=== PATIENT | male | born 1980 | race Caucasian/White ===

== ENCOUNTER 2023-08-09 10:34 | Emergency (ER) | payer OTHER, SELFPAY ==
[2023-08-09] VITALS (28 sets, daily range): BP systolic 156–222; BP diastolic 108–163; PULSE 62–95; RESP 12–20; TEMP 36.3–36.7; O2SAT 92–952; BMI 30.6
--- NOTE | 2023-08-09 11:04 | EKG12_ITS ---
Test Reason : Blood Pressure : / mmHG Vent. Rate : 088 BPM Atrial Rate : 088 BPM P-R Int : 146 ms QRS Dur : 096 ms QT Int : 408 ms P-R-T Axes : 061 -03 057 degrees QTc Int : 493 ms Normal sinus rhythm Possible Left atrial enlargement Nonspecific T wave abnormality Prolonged QT Abnormal ECG Confirmed by MARZENA GRAYSON, CHEN ([id number]), editorial clerk DENNIS SALGADO ([id number]) on 08/16/2023 9:51:06 AM Referred By: Confirmed By:SERVANDO IVAN MD
--- NOTE | 2023-08-09 11:04 | EX.ED.DYSGE1 ---
HPI History of Present Illness Chief Complaint: Hypertension Informant: patient Onset/Context/Timing Onset: Today Context: Gradual Onset Timing: Continuous Worsened by: Nothing Relieved by: Nothing Narrative Narrative: Patient presents with high blood pressure that was noticed today. Patient states he was scheduled to have an umbilical herniorrhaphy today. Patient states his blood pressure was too high and his surgery was canceled. Patient denies any symptoms. Patient states he does not go to the doctor and does not know if he has a history of hypertension. Patient does not take any antihypertensive medications. Patient denies any headaches. Patient denies any chest pain or shortness of breath. Patient denies any visual changes. PFSH PFSH Medical History Alcohol use Marijuana use Smoker Home Medications lisinopril 10 mg tablet 10 mg PO DAILY #10 tabs 08/09/23 [Rx Last Taken Unknown] Allergy/AdvReac Type Severity Reaction Status Date / Time No Known Allergies Allergy Verified 08/09/23 10:35 Family History (Updated 06/22/23 @ 14:29 by Soni Miranda LPN) Father Colon cancer Mother Lung cancer Surgical History History of tonsillectomy History of wisdom tooth extraction S/P inguinal hernia repair Social History (Updated 08/09/23 @ 12:[address] Jerome Dye DO) Smoking Status: Current every day smoker tobacco type: e-cigarettes alcohol intake: current alcohol intake frequency: 3 or more drinks per day Alcohol type: hard liquor substance use type: marijuana ROS ROS ED Constitutional Constitutional ED: Denies chills or fever(s) Eyes Eyes: Denies blurry vision or change in vision ENT ENT ED: Denies rhinorrhea or sore throat Cardiovascular Cardiovascular: Denies chest pain or palpitations Respiratory/Chest Respiratory/Chest: Denies cough or dyspnea Gastrointestinal Gastrointestinal: Denies nausea or vomiting Genitourinary Genitourinary ED: Denies dysuria or hematuria Musculoskeletal Musculoskeletal: Denies back pain or neck pain Integumentary Denies abscess or rash Neurologic Neurologic: Denies headache(s) or weakness Allergic/Immunologic Allergic/Immunologic ED: Denies mouth swelling or urticaria EXAM Physical Exam Const Vital Signs: 08/09/23 10:35 08/09/23 11:16 08/09/23 11:23 Temperature 97.4 F L Temperature Source Temporal Pulse Rate 95 83 Respiratory Rate 18 14 Respiratory Effort Normal Non-Labored Blood Pressure 222/163 H 209/139 H Blood Pressure Mean 182 162 Pulse Ox 97 96 Oxygen Delivery Method Room Air Room Air 08/09/23 11:53 08/09/23 12:33 08/09/23 12:32 Temperature Temperature Source Pulse Rate 65 62 71 Respiratory Rate 16 18 20 H Respiratory Effort Blood Pressure 191/134 H 188/135 H Blood Pressure Mean 153 152 Pulse Ox 94 95 94 Oxygen Delivery Method Room Air Room Air 08/09/23 12:40 08/09/23 12:45 08/09/23 12:50 Temperature Temperature Source Pulse Rate 62 68 62 Respiratory Rate 19 H 17 17 Respiratory Effort Blood Pressure 180/131 H Blood Pressure Mean 146 Pulse Ox 93 93 93 Oxygen Delivery Method 08/09/23 13:00 08/09/23 13:10 08/09/23 13:15 Temperature Temperature Source Pulse Rate 69 65 64 Respiratory Rate 18 18 16 Respiratory Effort Blood Pressure 167/121 H 174/127 H Blood Pressure Mean 135 139 Pulse Ox 92 94 94 Oxygen Delivery Method 08/09/23 13:20 08/09/23 13:30 08/09/23 13:40 Temperature Temperature Source Pulse Rate 76 72 66 Respiratory Rate 18 14 16 Respiratory Effort Blood Pressure 192/136 H Blood Pressure Mean 154 Pulse Ox 94 97 93 Oxygen Delivery Method 08/09/23 13:45 08/09/23 13:50 08/09/23 14:00 Temperature Temperature Source Pulse Rate 72 68 70 Respiratory Rate 16 19 H 15 Respiratory Effort Blood Pressure 177/130 H 176/127 H Blood Pressure Mean 145 143 Pulse Ox 95 93 95 Oxygen Delivery Method 08/09/23 14:10 08/09/23 14:15 08/09/23 14:20 Temperature Temperature Source Pulse Rate 62 71 Respiratory Rate 17 16 Respiratory Effort Blood Pressure 172/123 H Blood Pressure Mean 137 Pulse Ox 93 93 Oxygen Delivery Method 08/09/23 14:30 08/09/23 14:30 08/09/23 14:40 Temperature Temperature Source Pulse Rate 73 73 66 Respiratory Rate 17 17 18 Respiratory Effort Blood Pressure 172/126 H Blood Pressure Mean 140 Pulse Ox 95 95 95 Oxygen Delivery Method 08/09/23 14:45 08/09/23 14:50 08/09/23 15:00 Temperature Temperature Source Pulse Rate 71 67 72 Respiratory Rate 12 17 15 Respiratory Effort Blood Pressure 165/112 H 169/125 H Blood Pressure Mean 128 137 Pulse Ox 96 96 93 Oxygen Delivery Method 08/09/23 15:10 Temperature Temperature Source Pulse Rate 89 Respiratory Rate 18 Respiratory Effort Blood Pressure Blood Pressure Mean Pulse Ox 93 Oxygen Delivery Method Positive well nourished and well developed General Appearance ED: well developed and NAD HEENT Reports moist mucous membranes Neck supple and no JVD Resp normal respiratory effort and clear to auscultation bilaterally Cardio regular rate, regular rhythm and no murmurs GI normal to inspection, nondistended, normoactive bowel sounds and non-tender Palpation: soft Extremity normal to inspection General Extremety ED: Negative for edema or tenderness General Extremity: Negative for edema Neuro oriented x3, CN's II-XII intact bilaterally and no sensory deficits noted Sensorium / Orientation: alert Motor Exam: strength 5/5 throughout Psych mental status grossly normal Skin no rashes or lesions noted MDM MDM MDM Narrative Medical decision making narrative: Differential diagnosis includes cardiac dysrhythmia, cardiac ischemia, acute kidney injury, pneumonia, pneumothorax, and urinary tract infection. CBC will be obtained to assess for leukocytosis and anemia. Comprehensive metabolic profile will be obtained to assess for hepatic function, renal function, and electrolyte abnormality. Urinalysis will be obtained to assess for urinary tract infection or hematuria. High-sensitivity troponin will be obtained to assess for cardiac ischemia. Chest x-ray will be obtained to assess for pneumonia and widened mediastinum. EKG will be obtained to assess for cardiac dysrhythmia and cardiac ischemia. Lab Data Attestation: I reviewed the patient's lab results. Lab results narrative: CBC was reviewed and was within normal limits. Comprehensive metabolic profile was reviewed and was within normal limits. Urinalysis was reviewed. There is no evidence of urinary tract infection or hematuria. High-sensitivity troponin was reviewed and was normal at 8. Labs: Laboratory Results - last 24 hr 08/09/23 08/09/23 11:17 12:10 WBC 8.0 RBC 5.07 Hgb 16.0 Hct 48.1 MCV 94.9 H MCH 31.6 MCHC 33.3 RDW Std Deviation 43.5 RDW Coeff of Anmol 12.5 Plt Count 413 MPV 8.7 Immature Gran % (Auto) 0.500 Neut % (Auto) 62.1 Lymph % (Auto) 23.2 [place] % (Auto) 11.3 H Eos % (Auto) 2.0 Baso % (Auto) 0.9 Absolute Neuts (auto) 5.0 Absolute Lymphs (auto) 1.85 Nucleated RBC % 0 Sodium 137 Potassium 4.0 Chloride 105 Carbon Dioxide 27.0 Anion Gap 5 BUN 12 Creatinine 1.04 Estim Creat Clear Calc 110.14 Est GFR (MDRD) Af Amer 100 Est GFR (MDRD) Non-Af 83 BUN/Creatinine Ratio 11.5 Glucose 104 Calcium 8.7 Total Bilirubin 1.00 AST 33 ALT 62 H Alkaline Phosphatase 88 Troponin I High Sens 8 Total Protein 7.5 Albumin 3.8 Globulin 3.7 Albumin/Globulin Ratio 1.0 Urine Color Yellow Urine Clarity Clear Urine pH 6.5 Ur Specific [place] 1.015 Urine Protein 15 H Urine Glucose (UA) Normal Urine Ketones Negative Urine Occult Blood Negative Urine Nitrite Negative Urine Bilirubin Negative Urine Urobilinogen Normal Ur Leukocyte Esterase Negative Urine RBC 0 SEEN Urine WBC 0 SEEN Ur Squamous Epith Cells 0-5 SEEN Urine Bacteria 0 SEEN Urine Mucus 0 SEEN Radiography Diagnostic Testing: Clinical Impression(s) from Imaging Studies Chest X-Ray 08/09/23 11:25 IMPRESSION: Right-sided aortic arch. The lungs are clear. Electronically Signed: Jasbir Collins MD at 12:03 EST , PA and lateral chest x-ray was obtained. There are 2 views. On my independent interpretation, lung vasquez are clear. There is normal cardiac silhouette. There is a right-sided aortic arch noted. Bony thorax is normal. There is no acute process noted. Radiologist also interpreted the x-ray and agrees. EKG Initial EKG: Attestation: I personally reviewed and interpreted this EKG as follows: Interpretation: Sinus Rhythm (88) and Non-Specific ST Changes Comments: EKG was obtained. On my independent interpretation, it showed a normal sinus rhythm with a rate of 88. CT interval, QRS interval, and QTc intervals were all normal. Hardy was normal. There are nonspecific ST-T wave changes. Prior EKG tracings: available for review Prior: Unchanged (08/03/2023) Treatment and Re-Evaluation :: Smoking cessation was discussed. Patient was given a dose of labetalol here. Patient's blood pressure improved slightly to 177/130. Patient was given a dose of clonidine. Patient's blood pressure was still 172/126. Patient was given another dose of clonidine. Patient's blood pressure improved to 156/108. Patient is feeling better on reevaluation. Patient wants to go home. Patient was given a prescription for lisinopril. Patient was instructed to follow-up with his primary care physician in 3 to 5 days. Patient was instructed to continue to monitor his blood pressures daily. Patient was instructed to keep a log of his blood pressures to take to his primary care physician for follow-up appointment. Patient and spouse understood and were agreeable with plan. All questions were answered. Discharge Plan Triage Chief Complaint: Hypertension ED Provider: Jerome Dye Dx/Rx/DC Orders Clinical Impression: Hypertension Instructions: ED Hypertension New Begin Treatment Prescriptions: New lisinopril 10 mg tablet 10 mg PO DAILY Qty: 10 0RF Primary Care Provider: Ally Bearden Referrals: Ally Bearden, SIGNALLING AND COMMUNICATIONS ENGINEER-C [Primary Care Provider] - 3-5 Days Disposition Disposition: Home, Self Care
[2023-08-09] MEDS: Labetalol (Prefilled) 20 MG/4 ML IV (11:20)
--- NOTE | 2023-08-09 11:25 | RAD_ITS ---
STUDY: X-RAY CHEST REASON FOR EXAM: Male, 43 years old. Hypertension TECHNIQUE: PA and lateral views of the chest. COMPARISON: None. FINDINGS: EKG electrodes are seen. The lungs are clear and expanded. There is no demonstrated pleural abnormality. Normal size heart. Normal mediastinum and vipul. Normal visualized pulmonary arteries. There is a right-sided aortic arch. This a normal variant. Normal visualized thoracic spine. Normal visualized ribs, clavicles, and shoulders. There is no demonstrated abnormality of the visualized soft tissue structures of the upper abdomen. RAD/Chest PA and Lateral IMPRESSION: Right-sided aortic arch. The lungs are clear. Electronically Signed: Jasbir Collins MD at 12:03 [facility] ,
[2023-08-09 11:30] LABS: Absolute Lymphocyte Count 1.85 X10^3/uL (0.83-4.51); Basophil# 0.07 X10^3/uL; Basophil% 0.9 % (0-1); Eosinophil# 0.16 X10^3/uL; Hematocrit 48.1 % (40-54); Lymphocyte # 1.85 X10^3/ul (0.83-4.51); Lymphocyte % 23.2 % (19-41); Mean Corp Hgb Conc 33.3 g/dL (32-36); Mean Corpuscular Hgb 31.6 pg (27.0-32.0); Mean Corpuscular Volume 94.9 fL (80-94); Mean Platelet Vol. 8.7 fl (6.2-12.0); Monocyte% 11.3 % (0-10); NRBC Flagged by Analyzer 0 % (0-5); Neutrophil # 4.96 X10^3/uL (2.7-7.7); Neutrophil % 62.1 % (47-70); Platelet Count 413 K/mm3 (150-450); RBC Distribution Width CV 12.5 % (11.6-14.6); RBC Distribution Width SD 43.5 fl (35.1-43.9); Red Blood Count 5.07 M/mm3 (4.6-6.2)
[2023-08-09 11:49] LABS: AST(SGOT) 33 U/L (15-37); Alanine Aminotransfer ALT/SGPT 62 U/L (16-61); Albumin, Serum 3.8 g/dL (3.2-5.0); Alkaline Phosphatase 88 U/L (45-117); Anion Gap 5 (5-15); BUN 12 mg/dL (7-18); BUN/Creat Ratio 11.5 RATIO (10-20); Calcium,Total 8.7 mg/dL (8.5-10.1); Chloride 105 mmol/L (98-107); Creatinine, Serum 1.04 mg/dL (0.70-1.30); EST Glomerular Filtration Rate 83 mL/min (>60); Est Glom Filt Rate - Afr Amer 100 mL/min (>60); Estimated Creatinine Clearance 110.14 ml/min; Globulin 3.7 g/dL (2.2-4.2); Glucose 104 mg/dL (74-106); Protein, Total 7.5 g/dL (6.4-8.2); Sodium Level 137 mmol/L (136-145); Troponin-I HS 8 pg/mL (3.0-78.0)
[2023-08-09 12:18] LABS: Bacteria 0 SEEN /hpf (None Seen); Mucous, Urine 0 SEEN /hpf (<or=2+); Red Blood Cells-Urine 0 SEEN /hpf (0-5); White Blood Cells 0 SEEN /hpf (0-5)
[2023-08-09 12:20] LABS: Color, Urine Yellow (Yellow); Glucose, Dipstick Normal (Normal); Ketone-Dipstick Negative (Negative); Leukocyte Esterase-Dipstick Negative /ul (Negative); Nitrite-Dipstick Negative (Negative); Occult Blood-Urine Negative /ul (Negative); Protein-Dipstick 15 mg/dl (Negative); Specific Gravity, Urine 1.015 (1.002-1.030); Urine Bilirubin Dipstick Negative (Negative); Urine Clarity Clear (Clear); Urine Urobilinogen Normal (Normal); Urine pH 6.5 (5.0 - 8.0)
[2023-08-09 12:27] LABS: Squamous Epithelial Cells - UA 0-5 SEEN /hpf (0-5)
[2023-08-09] MEDS: cloNIDine HCl 0.2 MG Tablet 0.200000000000000011 MG PO (13:30)
[2023-08-09] MEDS: cloNIDine HCl 0.1 MG Tablet 0.100000000000000006 MG PO (15:11)
--- OUTSIDE RECORDS SUMMARY | 2023-08-09 18:10 | XMS RPT_ITS | CCD ---
Author Name Unknown Address [address] [place] [address] Organization [facility] Care Team Providers Care Employee Services Manager Name Role Phone Don Lara MD Primary Care Provider DON LARA Primary Care Unavailable SAVAGE HER Referring Unavailable DON LARA Primary Care Unavailable Medications Current Medications Medication Drug Class(es) Dates Sig (Normalized) Sig (Original) amoxicillin 875 mg oral tablet (2 sources) Penicillin-class Antibacterial Start: 11-11-2021 End: 11-18-2021 take 1 tablet by mouth twice daily amoxicillin (AMOXIL) 875 mg tablet Take 1 tablet by mouth twice daily for 7 days. 14 tablet 0 11/11/2021 11/18/2021 Active Completed/Discontinued Medications Medication Drug Class(es) Dates Sig (Normalized) Sig (Original) ibuprofen 800 mg oral tablet (4 sources) Nonsteroidal Anti-inflammatory Drug Start: 07-16-2009 IBUPROFEN 800 MG TAB Indications: Rotator cuff syndrome Take one(1) tablet every eight(8) hours as needed for pain. 60 0 07/16/2009 Active Problems Problem Classification Problem Date Documented Da te Episodic/Chronic Fever of unknown origin (1 source) Fever; Translations: [Fever, unspecified] Episodic Inflammation; infection of eye (except that caused by tuberculosis or sexually transmitteddisease) (1 source) Bacterial conjunctivitis; Translations: [Unspecified conjunctivitis] Episodic Other ear and sense organ disorders (1 source) Impacted cerumen in right ear; Translations: [Impacted cerumen, right ear] Episodic Otitis media and related conditions (1 source) Acute bilateral otitis media ; Translations: [Otitis media, unspecified, bilateral] Episodic Substance-related disorders (4 sources) Tobacco user; Translations: [Nicotine dependence, unspecified, uncomplicated] 07-05-2007 Chronic Results Test Name Value Interpretation Reference Range Facil ity Vital Signs Date Time Vital Sign Value Performing Clinician Charlee bradshaw 10-20-2022 09:10-0400 Body temperature 97.9 [degF] Krislyn Aberegg PA Work Phone: [facility] 10-20-2022 09:10-0400 Body weight 101.7 kg Krislyn Aberegg PA Work Phone: [facility] 10-20-2022 09:10-0400 Diastolic blood pressure 84 mm[Hg] Krislyn Aberegg PA Work Phone: [facility] 10-20-2022 09:10-0400 Heart rate 76 /min Krislyn Aberegg PA Work Phone: [facility] 10-20-2022 09:10-0400 Respiratory rate 16 /min Krislyn Aberegg PA Work Phone: [facility] 10-20-2022 09:10-0400 SaO2% (BldA) [Mass fraction] 97 % Krislyn Aberegg PA Work Phone: [facility] 10-20-2022 09:10-0400 Systolic blood pressure 142 mm[Hg] Krislyn Aberegg PA Work Phone: [facility] 11-11-2021 11:41-0400 Body temperature 100.8 [degF] Henrietta Ojeda CONTRACTS SPECIALIST.ARCHITECTURAL DESIGNER Work Phone: [facility] 11-11-2021 11:41-0400 Body weight 103.87 kg Henrietta Ojeda CONTRACTS SPECIALIST.ARCHITECTURAL DESIGNER Work Phone: [facility] 11-11-2021 11:41-0400 Diastolic blood pressure 76 mm[Hg] Henrietta Ojeda CONTRACTS SPECIALIST.ARCHITECTURAL DESIGNER Work Phone: [facility] 11-11-2021 11:41-0400 Heart rate 116 /min Henrietta Ojeda CONTRACTS SPECIALIST.ARCHITECTURAL DESIGNER Work Phone: [facility] 11-11-2021 11:41-0400 Respiratory rate 16 /min Henrietta Ojeda CONTRACTS SPECIALIST.ARCHITECTURAL DESIGNER Work Phone: [facility] 11-11-2021 11:41-0400 SaO2% (BldA) [Mass fraction] 96 % Henrietta Ojeda CONTRACTS SPECIALIST.ARCHITECTURAL DESIGNER Work Phone: [facility] 11-11-2021 11:41-0400 Systolic blood pressure 132 mm[Hg] Henrietta Ojeda CONTRACTS SPECIALIST.ARCHITECTURAL DESIGNER Work Phone: [facility] Encounters Encounter Date Encounter Type Care Provider Facility Start: 06-17-2023 End: 06-17-2023 ambulatory DON LARA Facility:[facility] Start: 10-20-2022 Telephone encounter Naeem perez Work Phone: [facility] Care Plan of Treatment Date Care Activity Detail Author Start: 02-12-2023 Influenza vaccination INFLUENZA (Season Ended) [facility] jose Start: 06-14-2022 DEPRESSION ASSESSMENT DEPRESSION ASSESSMENT [facility] Start: 02-12-2022 Influenza vaccination INFLUENZA (Season Ended) [facility] jose Start: 11-11-2021 End: 11-25-2021 Influenza virus A and B RNA and SARS-CoV-2 (COVID-19) N gene panel - Respiratory specimen by SAMIA with probe detection COVID WITH FLUA+B, ROUTINE Microbiology Routine Fever, unspecified fever cause Expected: 11/11/2021, Expires: 11/25/2021 [facility] Work Phone: Immunizations Immunization Date Immunization Notes Care Provider Duyen chappell 07-05-2007 tetanus and diphther ia toxoids, adsorbed, preservative free, for adult use (2 Lf of tetanus toxoid and 2 Lf of diphtheria toxoid) Henrietta Ojeda CONTRACTS SPECIALIST.ARCHITECTURAL DESIGNER Work Phone: [facility] Work Phone: Payers Date Payer Category Payer Unknown MMO MMO [employer] [id number] 2018-Present [phone] [address] [place] [address] PPO [id number] 2018 Unknown MMO MMO [employer] PPO [id number] 2018-Present [phone] [address] [place] [address] PPO [id number] 2018 Unknown [id number] Social History Date Type Detail Facility Start: 09-12-[facility] Work Phone: History of tobacco use Cigarette Smoker [facility] Work Phone: Start: 11-11-2021 End: 10-20-2022 Alcohol intake Current drinker of alcohol (finding) [facility] Start: 07-05-2007 History SDOH Alcohol Comment rare (few times a year) [facility] Start: 1980 Sex Assigned At Not on file [facility] Start: 11-01-2021 End: 11-11-2021 Exposure to SARS-CoV-2 (event) Not sure [facility] Work Phone: Start: 09-12-2011 Cigarettes smoked current (pack per day) - Reported 1 [facility] Start: 09-12-2011 Tobacco use and exposure Smokeless tobacco non-user [facility] Progress note 06-17-2023 Note Date & Type Note Facility 06-17-2023 Note HNO ID: [id number] Author: MANNY SAUCEDA RT(R) Service: ? 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 FALL SCREENING: Has the patient had 2 falls in the last year or 1 fall with injury or currently using an Ambulatory Assistive Device (Walker, Cane, Wheelchair, Crutches, etc.)? No PATIENT GENDER DATA: Male PATIENT RELEVANT IMPLANT DATA REVIEWED: Yes ALLERGIES: Reviewed and unchanged CONTRAST ALLERGY: NO. EXAM: CT -CONTRAST INDUCED NEPHROPATHY RISK FACTORS: Not applicable CREATININE: No results found for: CREAT , EGFROTH , EGFRAA P.O.C.T. RESULTS: POC done: Yes, See Lab Tab June 17, 2023 TREATMENT: N/A PERIPHERAL IV DATA: Ambulatory: A peripheral IV was started in the Right antecubital site with a Angio cath: 22 gauge. RADIOLOGY DEPARTMENT: CT; Exam(s) Completed: Abdomen SIGNATURE: RT Luz(R) PATIENT NAME: Kendal Ann DATE: June 17, 2023 TIME: 1:32 PM [facility] [place] Note 10-20-2022 Telephone Encounter - Eliza Carrillo LPN - 10/20/2022 12:53 PM EDTTelephone Encounter - Jaleesa Mcgrath RN - 10/20/2022 12:29 PM EDT Note Date & Type Note Facility 10-20-2022 Miscellaneous Notes Formattin g of this note might be different from the original. 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 Patient states that this medication is on back order. Patient asking if something else can be ordered? Please review and advise, Jaleesa Mcgrath RN Please call patient and let him know that we sent in a prescription for a different antibiotic ointment for him. Thank you documented in this encounter [facility] Progress note 10-20-2022 Note Date & Type Note Facility 10-20-2022 Note HNO ID: [id number] Author: MAU Rhdoes Service: ? Author Type: Physician Food Mixer Type: Progress Notes Filed: 10/20/2022 9:20 AM Note Text: This note was created using NoteWriter. Subjective Kendal Ann is a 42 year old male. HPI 42-year-old male presents for right eye redness, irritation. It started about 2 days ago. He has been using old Cipro drops that he had from a prior diagnosis. He states that it has improved with those drops. He states the eye is very watery and red. It is also itchy and irritated. He has had some crusting around the eye. He states his girlfriend's child recently had pinkeye. Patient has not had any fevers, cough, URI symptoms. No vision changes. No headaches. Does not wear contacts or glasses PAST MEDICAL HISTORY Diagnosis Date Tobacco use disorder age 15 PAST SURGICAL HISTORY Procedure Laterality Date RPR INGUN HERNIA SLIDING ANY AGE age 7-8 [place] TONSILLECTOMY PRIMARY/SECONDARY ALLERGIES Patient has no known allergies. MEDICATIONS trimethoprim-polymyxin (POLYTRIM) 10,000 unit- 1 mg/mL ophthalmic solution Use 1 Drop in the right eye every 4 hours for 7 days. meloxicam 15 mg ORAL tablet Take 1 tablet by mouth once daily. Take with food. (Patient not taking: Reported on 11/11/2021 ) IBUPROFEN 800 MG TAB Take one(1) tablet every eight(8) hours as needed for pain. (Patient not taking: Reported on 11/11/2021) FAMILY HISTORY Problem Relation Age of Onset Allergies Mother Headache Brother Stroke Maternal Grandfather Ischemic Heart Disease Maternal Grandfather first AL at age 40's Heart Maternal Grandfather surgery (several CABG) Hypertension Maternal Grandfather Hypertension Maternal Grandmother Lipids Maternal Grandfather Diabetes Maternal Uncle Alcohol/Drug Maternal Grandmother Kidney failure Ischemic Heart Disease Maternal Uncle first AL early 40's None Father (varicose veins severe) Colon Cancer Other none Prostate Cancer Other none Social History Tobacco Use Smoking status: Every Day Packs/day: 1.00 Years: 12.00 Pack years: 12.00 Types: Cigarettes Smokeless tobacco: Never Substance Use Topics Alcohol use: Yes Comment: rare (few times a year) Drug use: No Review of Systems Constitutional: Negative for chills and fever. HENT: Negative for congestion and sore throat. Eyes: Positive for discharge, redness and itching. Negative for photophobia, pain and visual disturbance. Respiratory: Negative for cough and shortness of breath. Gastrointestinal: Negative for diarrhea and vomiting. Objective BP 142/84 Pulse 76 Temp 36.6 ?C (97.9 ?F) (Tympanic) Resp 16 Wt 101.7 kg (224 lb 3.2 oz) SpO2 97% Physical Exam Vitals and nursing note reviewed. Constitutional: General: He is not in acute distress. Appearance: Normal appearance. He is not toxic-appearing. HENT: Nose: Nose normal. Mouth/Throat: Mouth: Mucous membranes are moist. Eyes: General: Vision grossly intact. Extraocular Movements: Extraocular movements intact. Conjunctiva/sclera: Right eye: Right conjunctiva is injected. Comments: Right conjunctiva injected with excessive tearing. PERRLA. EOMI. Vision grossly intact. No periorbital edema or erythema. No pain with eye movement Cardiovascular: Rate and Rhythm: Normal rate and regular rhythm. Pulmonary: Effort: Pulmonary effort is normal. Breath sounds: Normal breath sounds. Skin: General: Skin is warm and dry. Neurological: Mental Status: He is alert. Assessment and Plan ASSESSMENT/PLAN: 1. Bacterial conjunctivitis - ICD9: 372.39, 041.9, ICD10: H10.9 - see medication orders - course and contagiousness issues discussed, including hand washing. - Instructed to call if high fever, development of periorbital redness or swelling, eye pain, visual changes, concerns or if symptoms persist. Diagnosis and treatment plan were discussed and questions were answered to the patient's satisfaction. Pt acknowledged understanding of concepts and follow up plan. Specific signs and symptoms that would indicate the need for higher level of care were discussed in detail warranting prompt ER evaluation. MAU Rhodes [facility] History of Present illness Narrative 10-20-2022 MAU Rhodes - 10/20/2022 9:19 AM EDT Note Date & Type Note Facility 10-20-2022 History of Presen t illness Narrative This note was created using [employer]. Subjective Kendal Ann is a 42 year old male. HPI 42-year-old male presents for right eye redness, irritation. It started about 2 days ago. He has been using old Cipro drops that he had from a prior diagnosis. He states that it has improved with those drops. He states the eye is very watery and red. It is also itchy and irritated. He has had some crusting around the eye. He states his girlfriend's child recently had pinkeye. Patient has not had any fevers, cough, URI symptoms. No vision changes. No headaches. Does not wear contacts or glasses PAST MEDICAL HISTORY Diagnosis Date Tobacco use disorder age 15 PAST SURGICAL HISTORY Procedure Laterality Date RPR INGUN HERNIA SLIDING ANY AGE age 7-8 [place] TONSILLECTOMY PRIMARY/SECONDARY <AGE 12 age 2 ALLERGIES Patient has no known allergies. MEDICATIONS trimethoprim-polymyxin (POLYTRIM) 10,000 unit- 1 mg/mL ophthalmic solution Use 1 Drop in the right eye every 4 hours for 7 days. meloxicam 15 mg ORAL tablet Take 1 tablet by mouth once daily. Take with food. (Patient not taking: Reported on 11/11/2021 ) IBUPROFEN 800 MG TAB Take one(1) tablet every eight(8) hours as needed for pain. (Patient not taking: Reported on 11/11/2021) FAMILY HISTORY Problem Relation Age of Onset Allergies Mother Headache Brother Stroke Maternal Grandfather Ischemic Heart Disease Maternal Grandfather first AL at age 40's Heart Maternal Grandfather surgery (several CABG) Hypertension Maternal Grandfather Hypertension Maternal Grandmother Lipids Maternal Grandfather Diabetes Maternal Uncle Alcohol/Drug Maternal Grandmother Kidney failure Ischemic Heart Disease Maternal Uncle first AL early 40's None Father (varicose veins severe) Colon Cancer Other none Prostate Cancer Other none Social History Tobacco Use Smoking status: Every Day Packs/day: 1.00 Years: 12.00 Pack years: 12.00 Types: Cigarettes Smokeless tobacco: Never Substance Use Topics Alcohol use: Yes Comment: rare (few times a year) Drug use: No Review of Systems Constitutional: Negative for chills and fever. HENT: Negative for congestion and sore throat. Eyes: Positive for discharge, redness and itching. Negative for photophobia, pain and visual disturbance. Respiratory: Negative for cough and shortness of breath. Gastrointestinal: Negative for diarrhea and vomiting. Objective BP 142/84 Pulse 76 Temp 36.6 C (97.9 F) (Tympanic) Resp 16 Wt 101.7 kg (224 lb 3.2 oz) SpO2 97% Physical Exam Vitals and nursing note reviewed. Constitutional: General: He is not in acute distress. Appearance: Normal appearance. He is not toxic-appearing. HENT: Nose: Nose normal. Mouth/Throat: Mouth: Mucous membranes are moist. Eyes: General: Vision grossly intact. Extraocular Movements: Extraocular movements intact. Conjunctiva/sclera: Right eye: Right conjunctiva is injected. Comments: Right conjunctiva injected with excessive tearing. PERRLA. EOMI. Vision grossly intact. No periorbital edema or erythema. No pain with eye movement Cardiovascular: Rate and Rhythm: Normal rate and regular rhythm. Pulmonary: Effort: Pulmonary effort is normal. Breath sounds: Normal breath sounds. Skin: General: Skin is warm and dry. Neurological: Mental Status: He is alert. Assessment and Plan ASSESSMENT/PLAN: 1. Bacterial conjunctivitis - ICD9: 372.39, 041.9, ICD10: H10.9 - see medication orders - course and contagiousness issues discussed, including hand washing. - Instructed to call if high fever, development of periorbital redness or swelling, eye pain, visual changes, concerns or if symptoms persist. Diagnosis and treatment plan were discussed and questions were answered to the patient's satisfaction. Pt acknowledged understanding of concepts and follow up plan. Specific signs and symptoms that would indicate the need for higher level of care were discussed in detail warranting prompt ER evaluation. MAU Rhodes documented in this encounter [facility] Note 11-12-2021 Telephone Encounter - Amparo Maher LPN - 11/12/2021 9:20 AM EDTTelephone Encounter - Judy Haile - 11/12/2021 8:30 AM EDTTelephone Encounter - Judy Haile - 11/12/2021 8:30 AM EDT Note Date & Type Note Facility 11-12-2021 Miscellaneous Notes Pt was notified of results & instructions, pt states understanding. Amparo Maher LPN Left message for patient to return call. Judy Haile ----- Message from Henrietta Ojeda APRN.ARCHITECTURAL DESIGNER sent at 11/12/2021 7:34 AM EDT ----- Please notify of positive COVID test. CDC recommendations Quarantine for 5 days from onset of symptoms, then 5 days of mask wearing around others. Supportive measures and can use OTC medicines for specific symptoms and ailments. Follow up with PCP documented in this encounter [facility] Instructions 11-11-2021 Patient Instructions Note Date & Type Note Facility 11-11-2021 Instructions Henrietta Ojeda APRN.ARCHITECTURAL DESIGNER - 11/11/2021 12:08 PM EDT OTITIS MEDIA GENERAL INFORMATION: Otitis media is an infection of the middle ear. The middle ear sits behind the eardrum. This infection may be caused by a virus or bacteria and often follows a cold. Children often have repeat ear infections. Otitis media is not contagious. INSTRUCTIONS: 1. An antibiotic has been prescribed. It should be taken exactly as prescribed. Do not stop the medicine even if the symptoms go away. 2. [id number] pain medication may be taken or other pain medication as prescribed by the doctor. 3. Nothing should be placed in the ear unless instructed by your doctor. 4. The patient may return to school/daycare or work when the temperature is normal (98.6 F or 37 C). 5. The patient should not swim while the ear is infected. CONTACT YOUR DOCTOR IF YOU OR YOUR CHILD: 1. Does not feel better within 36 hours. 2. Develops a temperature over 102E F (39E C). 3. Starts vomiting or has diarrhea. 4. Develops drainage from the affected ear. 5. Has any new problem that may be related to the medicine prescribed. RETURN TO THE ED IF: 1. You or your child has a severe headache or pain around the ear. 2. You or your child notice swelling around the ear. 3. You or your child has a seizure (convulsion), twitching of the facial muscles, or passes out. 4. You or your child is dizzy, has a stiff neck, or cannot walk or talk normally. 5. Your child becomes more irritable or listless (not interested in his or her surroundings, does not get soothed by you holding him or her).FEVER GENERAL INFORMATION: A fever is a temperature taken by mouth or rectum that is higher than 100.4F (38C) in someone who has been resting. Infections commonly cause fever, and children may run higher temperatures than adults. A fever by itself may not be dangerous unless it goes above 105F (40.5C). INSTRUCTIONS: 1. The patient will be better off decreasing his or her activity until he is feeling better. 2. Encourage the patient to drink extra fluids. He/she may not feel like eating much solid food. 3. During this illness, you may take the patient's temperature in the morning, at bedtime, every 4 hours during the day, or more often if the patient looks ill. 4. You may use medications to bring down the patient's fever. Ibuprofen or acetaminophen are good choices. Follow the instructions on the bottle for the appropriate dosage for the patient. Unless your doctor has recommended using aspirin, you should avoid giving aspirin to children. 5. If your child's temperature is above 104F (39.4C), the doctor may suggest you give him/her a sponge bath. Use lukewarm water in a warm room. You should make your child damp, not soaking wet. Do NOT use a fan or ice or cold water, and do not let him/her get chilled. Shivering can make things worse. DO NOT USE RUBBING ALCOHOL! 6. The patient may return to school/daycare or work when the temperature is normal (98.6F or 37C). CONTACT YOUR DOCTOR IF THE PATIENT: 1. Continues to run a fever despite antibiotics for 48 hours. 2. Develops new symptoms. 3. Shows a marked change in behavior, level of consciousness, or level of activity. RETURN TO THE ED IF: 1. The patient develops a temperature over 105F (40.5C). 2. The patient has a seizure (convulsion), develops abnormal movements of the face, arms or legs, or has difficulty breathing. 3. The patient is dizzy, has a stiff neck, or cannot walk or talk normally. 4. The patient becomes more irritable or listless (not interested in his or her surroundings, does not get soothed by you holding him or her). documented in this encounter [facility] History of Present illness Narrative 11-11-2021 Henrietta Ojeda APRN.CNP - 11/11/2021 12:01 PM EDT Note Date & Type Note Facility 11-11-2021 History of Presen t illness Narrative This note was created using [employer]. Subjective Kendal Ann is a 41 year old male. 41 year old male with negative PMH presents with body aches, fever, and right ear clogged . Acute onset of Body aches and fever this morning. clogged ear onset a couple of weeks States I was camping all weekend and felt fine but, my girlfriend was seen here yesterday and she has a virus . 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 Left work today at 10 am due to illness The history is provided by the patient. No director executive communications was used. Ear Problem There is pain in the right ear. This is a new problem. The current episode started 1 to 4 weeks ago. The problem occurs constantly. The problem has been unchanged. The maximum temperature recorded prior to his arrival was 100.4 - 100.9 F. The fever has been present for less than 1 day. The pain is mild. Associated symptoms include headaches and hearing loss. Pertinent negatives include no abdominal pain, coughing, diarrhea, ear discharge, neck pain, rash, rhinorrhea, sore throat or vomiting. He has tried NSAIDs (200 mg) for the symptoms. The treatment provided no relief. There is no history of a chronic ear infection, hearing loss or a tympanostomy tube. PAST MEDICAL HISTORY Diagnosis Date Tobacco use disorder age 15 PAST SURGICAL HISTORY Procedure Laterality Date RPR INGUN HERNIA SLIDING ANY AGE age 7-8 [place] TONSILLECTOMY PRIMARY/SECONDARY <AGE 12 age 2 ALLERGIES Patient has no known allergies. MEDICATIONS amoxicillin (AMOXIL) 875 mg tablet Take 1 tablet by mouth twice daily for 7 days. meloxicam 15 mg ORAL tablet Take 1 tablet by mouth once daily. Take with food. IBUPROFEN 800 MG TAB Take one(1) tablet every eight(8) hours as needed for pain. FAMILY HISTORY Problem Relation Age of Onset Allergies Mother Headache Brother Stroke Maternal Grandfather Ischemic Heart Disease Maternal Grandfather first AL at age 40's Heart Maternal Grandfather surgery (several CABG) Hypertension Maternal Grandfather Hypertension Maternal Grandmother Lipids Maternal Grandfather Diabetes Maternal Uncle Alcohol/Drug Maternal Grandmother Kidney failure Ischemic Heart Disease Maternal Uncle first AL early 40's None Father (varicose veins severe) Colon Cancer Other none Prostate Cancer Other none Social History Tobacco Use Smoking status: Current Every Day Smoker Packs/day: 1.00 Years: 12.00 Pack years: 12.00 Types: Cigarettes Smokeless tobacco: Never Used Substance Use Topics Alcohol use: Yes Comment: rare (few times a year) Drug use: No Review of Systems Constitutional: Positive for fever. Negative for activity change, appetite change and chills. HENT: Positive for hearing loss. Negative for congestion, ear discharge, ear pain, facial swelling, rhinorrhea, sinus pressure, sinus pain, sneezing, sore throat, trouble swallowing and voice change. Right ear muffled. Denies pain Eyes: Negative for photophobia, pain, discharge, redness and itching. Respiratory: Negative for cough, chest tightness, shortness of breath and wheezing. Cardiovascular: Negative for chest pain and palpitations. Gastrointestinal: Negative for abdominal pain, constipation, diarrhea, nausea and vomiting. Endocrine: Negative for cold intolerance and heat intolerance. Genitourinary: Negative for difficulty urinating, frequency and urgency. Musculoskeletal: Negative for back pain, gait problem and neck pain. Skin: Negative for color change, pallor, rash and wound. Allergic/Immunologic: Positive for environmental allergies. Negative for food allergies and immunocompromised state. Neurological: Positive for headaches. Negative for dizziness, seizures, weakness, light-headedness and numbness. Psychiatric/Behavioral: Negative for agitation, behavioral problems and confusion. Objective BP 132/76 Pulse 116 Temp (!) 38.2 C (100.8 F) Resp 16 Wt 103.9 kg (229 lb) SpO2 96% Physical Exam Vitals and nursing note reviewed. Constitutional: General: He is not in acute distress. Appearance: Normal appearance. He is normal weight. He is not ill-appearing, toxic-appearing or diaphoretic. HENT: Head: Normocephalic. Right Ear: No decreased hearing noted. No middle ear effusion. There is impacted cerumen. Tympanic membrane is erythematous. Tympanic membrane is not bulging. Left Ear: No middle ear effusion. There is no impacted cerumen. Tympanic membrane is erythematous. Tympanic membrane is not bulging. Ears: Comments: Right ear irrigated. Large amount of formed cerumen removed by nursing staff. After irrigation ear exam shows erythema to canal and TM. No purulent or serous drainage noted. Left ear free of cerumen impaction. Erythema in canal and TM. No effusion noted. Nose: Nose normal. No congestion or rhinorrhea. Mouth/Throat: Mouth: Mucous membranes are moist. Pharynx: No oropharyngeal exudate or posterior oropharyngeal erythema. Eyes: General: No scleral icterus. Right eye: No discharge. Left eye: No discharge. Extraocular Movements: Extraocular movements intact. Conjunctiva/sclera: Conjunctivae normal. Pupils: Pupils are equal, round, and reactive to light. Cardiovascular: Rate and Rhythm: Tachycardia present. Pulses: Normal pulses. Heart sounds: Normal heart sounds. No murmur heard. No gallop. Pulmonary: Effort: Pulmonary effort is normal. Breath sounds: Normal breath sounds. No wheezing. Chest: Chest wall: No tenderness. Abdominal: General: Bowel sounds are normal. There is no distension. Palpations: Abdomen is soft. Tenderness: There is no abdominal tenderness. Hernia: No hernia is present. Musculoskeletal: General: No swelling, tenderness, deformity or signs of injury. Normal range of motion. Cervical back: Normal range of motion. No rigidity or tenderness. Right lower leg: No edema. Left lower leg: No edema. Skin: General: Skin is warm and dry. Capillary Refill: Capillary refill takes less than 2 seconds. Findings: No lesion or rash. Neurological: General: No focal deficit present. Mental Status: He is alert and oriented to person, place, and time. Mental status is at baseline. Psychiatric: Mood and Affect: Mood normal. Behavior: Behavior normal. Thought Content: Thought content normal. Assessment and Plan ASSESSMENT/PLAN: 1. Acute otitis media, bilateral - ICD9: 382.9, ICD10: H66.93 (primary diagnosis) - Will begin treatment with Amoxicillin for 7 days OTC analgesics 2. Impacted cerumen of right ear - ICD9: 380.4, ICD10: H61.21 Irrigated by nursing staff, tolerated procedure well Cerumen impaction removed and TM visible. 3. Fever, unspecified fever cause - ICD9: 780.60, ICD10: R50.9 - COVID WITH FLUA+B, ROUTINE X's two days. Could be related to Otitis Media vs viral illness Pt education given on antipyretics OTC and increase fluid intake. Flu and COVID pending Discussed red flags Patsy Calvin documented in this encounter [facility] Evaluation note Note Date & Type Note Facility documented in this encounter [facility] Evaluation note Note Date & Type Note Facility documented in this encounter [facility] Health Concerns Infection Onset Date Last Indicated Resolved Time COVID-19 Rule-Out 11/11/2021 11/11/2021 Infection Onset Date Last Indicated Resolved Time COVID-19 Rule-Out 11/11/2021 11/11/2021 11/12/2021 3:23 AM EDT COVID-19 Confirmed 11/11/2021 11/11/2021 Summary Purpose Family History No Family History Records Found Advance Directives No Advanced Directives Records Found Additional Source Comments Source Comments (unrecognize d section and content) In the event this informatio n is protected by the Federal Confidentiality of Alcohol and Drug Abuse Patient Records regulations: The Federal rules restrict any use of the information to criminally investigate or prosecute any alcohol or drug abuse patient.[facility] the event this information is protected by the Federal Confidentiality of Alcohol and Drug Abuse Patient Records regulations: The Federal rules restrict any use of the information to criminally investigate or prosecute any alcohol or drug abuse patient.[facility] the event this information is protected by the Federal Confidentiality of Alcohol and Drug Abuse Patient Records regulations: The Federal rules restrict any use of the information to criminally investigate or prosecute any alcohol or drug abuse patient.[facility] the event this information is protected by the Federal Confidentiality of Alcohol and Drug Abuse Patient Records regulations: The Federal rules restrict any use of the information to criminally investigate or prosecute any alcohol or drug abuse patient.[facility] Reason for Visit (unrecogniz ed section and content) Reason Comments Results Reason Comments Eye Problem Red and irritated ri ght eye x 2 days Reason Comments Medication Problem Care Teams (unrecognized sec tion and content) 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 This clinical summary was aggregated from multiple sources. Caution should be exercised in using it in the provision of clinical care. This summary normalizes information from multiple sources, and as a consequence, information in this document may materially change the coding, format and clinical context of patient data. In addition, data may be omitted in some cases. CLINICAL DECISIONS SHOULD BE BASED ON THE PRIMARY CLINICAL RECORDS. [employer] provides no warranty or guarantee of the accuracy or completeness of information in this document.
== END 2023-08-09 15:46 | disposition home or self-care (01) ==
PROVIDERS: Emergency Provider Emergency Medicine; PCP Nurse Practitioner Family; Visit Provider Emergency Medicine
DX: I10 Essential (primary) hypertension (principal); F17.290 Nicotine dependence, other tobacco product, uncomplicated; Z79.899 Other long term (current) drug therapy
CPT/HCPCS: 71046; 80053; 81001; 84484; 85025; 93005; 96374; 99284; A4216

== ENCOUNTER → 2023-10-22 | Day surgery (SDC) | payer OTHER, SELFPAY ==
--- NOTE | 2023-08-03 12:42 | EKG12_ITS ---
Test Reason : PRE OP Blood Pressure : / mmHG Vent. Rate : 089 BPM Atrial Rate : 089 BPM P-R Int : 142 ms QRS Dur : 096 ms QT Int : 412 ms P-R-T Axes : 064 022 031 degrees QTc Int : 501 ms Normal sinus rhythm Prolonged QT Abnormal ECG Confirmed by CLARENCE GRAYSON, KRISTEN ([id number]), newspaper copy editor DENNIS SALGADO ([id number]) on 08/04/2023 9:00:08 AM Referred By: Don Lara Confirmed By:KRISTEN LIMA MD
[2023-08-03 13:37] LABS: Hemoglobin 15.8 g/dL (13.0-16.5); Mean Corp Hgb Conc 33.6 g/dL (32-36); Mean Corpuscular Hgb 31.6 pg (27.0-32.0); Platelet Count 425 K/mm3 (150-450); RBC Distribution Width CV 12.3 % (11.6-14.6); RBC Distribution Width SD 42.5 fl (35.1-43.9); White Blood Count 8.5 K/mm3 (4.4-11.0)
[2023-08-03 13:53] LABS: Anion Gap 5 (5-15); BUN 14 mg/dL (7-18); BUN/Creat Ratio 12.1 RATIO (10-20); Calcium,Total 9.1 mg/dL (8.5-10.1); Chloride 104 mmol/L (98-107); Creatinine, Serum 1.16 mg/dL (0.70-1.30); EST Glomerular Filtration Rate 73 mL/min (>60); Est Glom Filt Rate - Afr Amer 88 mL/min (>60); Glucose 99 mg/dL (74-106); Potassium 3.8 mmol/L (3.5-5.1); Sodium Level 138 mmol/L (136-145)
[2023-08-03 14:01] LABS: AST(SGOT) 34 U/L (15-37); Alanine Aminotransfer ALT/SGPT 72 U/L (16-61); Albumin, Serum 3.8 g/dL (3.2-5.0); Alkaline Phosphatase 98 U/L (45-117); Bilirubin, Direct 0.17 mg/dL (0.00-0.30); Globulin 3.7 g/dL (2.2-4.2); Protein, Total 7.5 g/dL (6.4-8.2)
[2023-08-03 14:07] LABS: Prothrombin Time (Protime)PT. 13.4 SECONDS (11.7-14.9)
[2023-08-03 14:08] LABS: Partial Thromboplast Time 29.3 Seconds (24.1-36.2)
[2023-08-09 10:02] VITALS: BP 193/53; PULSE 92; RESP 18; TEMP 37.2; O2SAT 100; BMI 31.1
== END | disposition home or self-care (01) ==
LOC: AC 08-09 10:23 → SDC 12:57 → PAT 12:57
PROVIDERS: Anesthesiology; PCP Nurse Practitioner Family; Referring Provider Family Medicine; Visit Provider Surgery
DX: Z01.818 Encounter for other preprocedural examination (principal); Z53.9 Procedure and treatment not carried out, unspecified reason
CPT/HCPCS: 36415; 80048; 80076; 85027; 85610; 85730; 93005; J7120

== ENCOUNTER 2024-05-07 10:47 | Emergency (ER) | payer OTHER, SELFPAY ==
[2024-05-07 10:48] VITALS: BP 140/108; PULSE 140; RESP 18; TEMP 37.7; O2SAT 99; BMI 31.6
[2024-05-07 11:07] VITALS: BP 150/117; PULSE 137; PULSE 142; RESP 20; TEMP 37.7; O2SAT 96
--- NOTE | 2024-05-07 11:20 | EKG12_ITS ---
Test Reason : TACHY Blood Pressure : */* mmHG Vent. Rate : 140 BPM Atrial Rate : 140 BPM P-R Int : 134 ms QRS Dur : 84 ms QT Int : 286 ms P-R-T Axes : 49 6 67 degrees QTcB Int : 436 ms Critical Test Result: High HR Sinus tachycardia Possible Left atrial enlargement Nonspecific ST and T wave abnormality Abnormal ECG Confirmed by Osvaldo Trejo ([id number]), video tape editor ODESSA AMBRIZ ([id number]) on 05/09/2024 10:28:11 AM Referred By: NORBERT/JANET Confirmed By: Osvaldo Trejo
[2024-05-07 11:30] LABS: Absolute Lymphocyte Count 1.52 X10^3/uL (0.83-4.51); Absolute Neutrophil Count 16.6 X10^3/uL (2.0-7.7); Basophil# 0.06 X10^3/uL; Basophil% 0.3 % (0-1); Eosinophil# 0.05 X10^3/uL; Eosinophils% 0.2 % (0-5); Hematocrit 46.7 % (40-54); Lymphocyte # 1.52 X10^3/ul (0.83-4.51); Lymphocyte % 7.6 % (19-41); Mean Corp Hgb Conc 34.3 g/dL (32-36); Mean Corpuscular Hgb 31.9 pg (27.0-32.0); Mean Platelet Vol. 8.4 fl (6.2-12.0); Monocyte# 1.78 X10^3/uL; Monocyte% 8.8 % (0-10); NRBC Flagged by Analyzer 0 % (0-5); Neutrophil # 16.59 X10^3/uL (2.7-7.7); Neutrophil % 82.5 % (47-70); POSITIVE DIFFERENTIAL YES; Platelet Count 440 K/mm3 (150-450); RBC Distribution Width CV 12.5 % (11.6-14.6); RBC Distribution Width SD 42.8 fl (35.1-43.9); Red Blood Count 5.02 M/mm3 (4.6-6.2); White Blood Count 20.1 K/mm3 (4.4-11.0)
[2024-05-07 11:32] LABS: Differential Indicated SCAN CRITERIA MET
--- NOTE | 2024-05-07 11:37 | CT_ITS ---
STUDY: CT FACIAL BONES WITH CONTRAST REASON FOR EXAM: Male, 44 years old. left facial swelling, dental pain RADIATION DOSAGE (If Supplied By Facility): CTDIvol = ( 29.38 ) mGy, DLP = ( 576.84 ) mGycm TECHNIQUE: The patient was scanned in a multi detector CT scanner. Transaxial imaging was performed following the intravenous administration of IV 100mL Isovue-370. Sagittal and coronal images were reconstructed. Individualized dose optimization techniques were used for this CT. COMPARISON: None. FINDINGS: Left most posterior maxillary tooth/molar anchoring roots are on anchored from the overlying bony matrix of the maxillary plate with loss of bone in prominent cystic lucency most likely due to chronic dental caries. This is best visualized on image #53/147 series 601. A periapical/periodontal abscess is present in the anterior aspect of the crown-rump of this to along the abdominal lining measuring 1.18 x 0.95 cm in diameter with overlying edema and cellulitis and reactive lymphadenopathy and hyperemia. Mild to moderate left facial soft tissue swelling is also present. The remaining soft tissues of the face are normal. Normal orbital lehman and orbital contents. Normal nasal bones and anterior nasal spine. There is no demonstrated fracture. Normal visualized paranasal sinuses. Normal mandible. The paranasal sinuses are clear CT/Sinus/Facial Bone WITH Contras IMPRESSION: 1. Left most posterior maxillary tooth/molar anchoring roots are on anchored from the overlying bony matrix of the maxillary plate with loss of bone in prominent cystic lucency most likely due to chronic dental caries. This is best visualized on image #53/147 series 601. 2. A periapical/periodontal abscess is present in the anterior aspect of the crown-rump of this to along the abdominal lining measuring 1.18 x 0.95 cm in diameter with overlying edema and cellulitis and reactive lymphadenopathy and hyperemia. Mild to moderate left facial soft tissue swelling is also present. The remaining soft tissues of the face are normal. Electronically Signed: Leobardo Davis MD at 12:35 EST ,
[2024-05-07 11:40] LABS: Anion Gap 10 (5-15); BUN 10 mg/dL (7-18); BUN/Creat Ratio 9.8 RATIO (10-20); Calcium,Total 8.9 mg/dL (8.5-10.1); Chloride 101 mmol/L (98-107); Creatinine, Serum 1.02 mg/dL (0.70-1.30); EST Glomerular Filtration Rate 84 mL/min (>60); Est Glom Filt Rate - Afr Amer 102 mL/min (>60); Glucose 127 mg/dL (74-106); Potassium 3.6 mmol/L (3.5-5.1); Sodium Level 135 mmol/L (136-145)
[2024-05-07] MEDS: Ketorolac 15 MG/ML Vial IV (11:49)
[2024-05-07] MEDS: 0.9% Normal Saline (1000mL) 1,000 ML 999 ML IV (11:50)
[2024-05-07 12:00] VITALS: BP 180/105; PULSE 120; RESP 18; TEMP 37.7; O2SAT 96
--- NOTE | 2024-05-07 12:11 | EX.ED.DYSGE1 ---
HPI History of Present Illness Chief Complaint: Dental Informant: patient Narrative Narrative: Patient is a 44 year old male with history of hypertension and occasional tobacco use presenting with left upper dental pain as well as left facial swelling. Patient states 2 days ago he started have some mild discomfort of his left upper back molar. Start to get more sore on Wednesday when he woke up and he had some mild swelling of his face. It is progressively worsened since around midnight last night. He initially went to urgent care read a temperature of 100.1. He was tachycardic. His recommend he come to the emergency room. Patient states he last ibuprofen at 5 AM. He denies any difficulty swallowing. Denies any significant headache but is having pain over the left side of his cheek/face. Denies difficulty opening his mouth. Denies any chest pain, shortness of breath or difficulty breathing. Denies any GI or symptoms. No other complaints or concerns reported at this time. Does not currently have a dentist. [facility] Medical History Alcohol use Marijuana use Smoker Home Medications ?Medication ?Instructions ?Recorded ?Last Taken ?Type lisinopril 10 mg tablet 10 mg PO DAILY #10 tabs 08/09/23 Unknown Rx amoxicillin 875 mg-potassium 1 tab PO BID #20 tabs 05/07/24 Unknown Rx clavulanate 125 mg tablet hydrocodone-acetaminophen 5-325mg 1 tab PO Q6H PRN PRN Pain 3 days 05/07/24 Unknown Rx 5mg-325mg #12 TABLETS Allergy/AdvReac Type Severity Reaction Status Date / Time No Known Allergies Allergy Verified 05/07/24 10:48 Family History Father Colon cancer Mother Lung cancer Surgical History History of tonsillectomy History of wisdom tooth extraction S/P inguinal hernia repair Social History Smoking Status: Current every day smoker tobacco type: e-cigarettes alcohol intake: current alcohol intake frequency: 3 or more drinks per day Alcohol type: hard liquor substance use type: marijuana ROS ROS ED Constitutional Constitutional ED: Reports fever(s); Denies chills Eyes Eyes: Denies blurry vision or change in vision ENT ENT ED: Reports other Details: left upper dental pain, left cheek swelling, left periorbital swelling ; Denies ear pain, rhinorrhea or sore throat Cardiovascular Cardiovascular: Denies chest pain Respiratory/Chest Respiratory/Chest: Denies cough Gastrointestinal Gastrointestinal: Denies abdominal pain, nausea or vomiting Musculoskeletal Musculoskeletal: Denies arthralgias, myalgias or neck pain Integumentary Denies rash Neurologic Neurologic: Denies headache(s), paresthesias or weakness EXAM Physical Exam Const Vital Signs: 05/07/24 10:48 05/07/24 11:07 05/07/24 11:07 Temperature 99.8 F H 99.8 F H 99.8 F H Temperature Source Oral Oral Oral Pulse Rate 140 H 137 H 142 H Respiratory Rate 18 20 H 20 H Blood Pressure 140/108 H 150/117 H 150/117 H Blood Pressure Mean 118 128 128 Pulse Ox 99 96 96 Oxygen Delivery Method Room Air Room Air Room Air 05/07/24 12:00 05/07/24 13:00 05/07/24 13:38 Temperature 99.8 F H 99.4 F H 98.2 F Temperature Source Oral Oral Pulse Rate 120 H 99 102 H Respiratory Rate 18 18 22 H Blood Pressure 180/105 H 150/102 H 147/105 H Blood Pressure Mean 130 118 119 Pulse Ox 96 99 96 Oxygen Delivery Method Room Air Positive well nourished and well developed General Appearance ED: well developed and NAD HEENT Reports TM's clear and moist mucous membranes HEENT Narrative: Several missing teeth. TTP of gingiva above tooth space 15/16. Swelling of the left cheek with redness and induration present. No fluctuance appreciated. There is edema noted around the left lower periorbital area. This appears more reactive. Normal nares. Normal phonation. No trismus. Sublingual mucosa is soft. Negative for trauma Tympanic Membrane ED: Yes TM's clear Eyes PERRL and EOMs intact bilaterally Neck no lymphadenopathy and supple Chest Wall inspection of chest normal and palpation of chest normal Resp normal respiratory effort and clear to auscultation bilaterally Cardio regular rhythm and no murmurs Rate: tachycardic GI normal to inspection, nondistended, normoactive bowel sounds and non-tender Extremity normal to inspection Neuro oriented x3 Sensorium / Orientation: alert Motor Exam: Negative for general weakness Psych mental status grossly normal Skin no rashes or lesions noted Skin Narrative: See ENT exam MDM MDM MDM Narrative Medical decision making narrative: Patient is evaluated for tachycardia which was noted at urgent care as well as upper dental pain and left-sided facial swelling and redness. Differential includes dental abscess, facial cellulitis, pots puffy tumor, sepsis and endocarditis. Patient overall is actually quite well-appearing despite his tachycardia and vital signs. He is given IV fluids, Toradol and started on Unasyn as clinically I suspect he does have at a minimum a dental infection is likely migrated to his sinuses. Lab work shows a leukocytosis of 20.1, elevated lactate of 2.1, elevated CRP of 32.6 but BMP is otherwise normal. CT of the face with IV contrast shows findings consistent with chronic dental caries as well as a periapical/periodontal abscess in the anterior aspect of the crown rump with abscess measuring 1.18 x 0.95 cm with overlying edema and cellulitis and reactive lymphadenopathy and hyperemia. There is mild to moderate left facial tissue swelling also present. On repeat evaluation tachycardias improving. Swelling looks mildly improved. Patient states he is actually feeling much better. Discussed that he is meeting criteria for sepsis and offered admission for IV antibiotics and further monitoring. At this time patient would prefer to go home. Given that overall he is quite well-appearing, heart rate was fluid responsive and he does not have any type of airway compromise will discharge home after shared medical decision making made. Counseled patient at length on the risk of progression and to have a low threshold to return to the emergency room. He verbalized agreement understand this plan. Given a prescription for Augmentin as well as a short course of [place] for further pain control. Encouraged to follow-up outpatient with dentist soon as possible as well. He verbalized agreement understand this plan. Discharged home in stable and improved condition. Lab Data Attestation: I reviewed the patient's lab results. Labs: Laboratory Results - last 24 hr 05/07/24 05/07/24 11:18 11:50 WBC 20.1 H RBC 5.02 Hgb 16.0 Hct 46.7 MCV 93.0 MCH 31.9 MCHC 34.3 RDW Std Deviation 42.8 RDW Coeff of Anmol 12.5 Plt Count 440 MPV 8.4 Immature Gran % (Auto) 0.600 Neut % (Auto) 82.5 H Lymph % (Auto) 7.6 L [place] % (Auto) 8.8 Eos % (Auto) 0.2 Baso % (Auto) 0.3 Absolute Neuts (auto) 16.6 H Absolute Lymphs (auto) 1.52 Nucleated RBC % 0 [address] Review May foll Sodium 135 L Potassium 3.6 Chloride 101 Carbon Dioxide 23.0 Anion Gap 10 BUN 10 Creatinine 1.02 Estim Creat Clear Calc 112.90 Est GFR (MDRD) Af Amer 102 Est GFR (MDRD) Non-Af 84 BUN/Creatinine Ratio 9.8 L Glucose 127 H Lactic Acid 2.1 H* Calcium 8.9 C-React Prot Ext Range 32.60 H Radiography Diagnostic Testing: Clinical Impression(s) from Imaging Studies Facial/Sinus 05/07/24 11:37 IMPRESSION: 1. Left most posterior maxillary tooth/molar anchoring roots are on anchored from the overlying bony matrix of the maxillary plate with loss of bone in prominent cystic lucency most likely due to chronic dental caries. This is best visualized on image #53/147 series 601. 2. A periapical/periodontal abscess is present in the anterior aspect of the crown-rump of this to along the abdominal lining measuring 1.18 x 0.95 cm in diameter with overlying edema and cellulitis and reactive lymphadenopathy and hyperemia. Mild to moderate left facial soft tissue swelling is also present. The remaining soft tissues of the face are normal. Electronically Signed: Leobardo Davis MD at 12:35 EST Reading Location ID and State: [address] [place] [address] , Service support , Rhythm Strip Rhythm Strip: Sinus Tach Rate: 140 Ectopy: None EKG Initial EKG: Attestation: I personally reviewed and interpreted this EKG as follows: Interpretation: Sinus Tachycardia Comments: Sinus tachycardia at a rate of 140 bpm Normal axis Normal intervals Normal ST segments Discharge Plan Triage Chief Complaint: Dental ED Provider: Therese Ferris Dx/Rx/DC Orders Clinical Impression: Abscess of apex of dental root complicating chronic inflammation, Cellulitis of face Instructions: ED Dental Abscess Facial Cellulitis Prescriptions: New amoxicillin-pot clavulanate 875-125 mg tablet 1 tab PO BID Qty: 20 0RF hydrocodone-acetaminophen 5-325 mg tablet 1 tab PO Q6H PRN PRN (Reason: Pain) 3 Days Qty: 12 0RF No Action lisinopril 10 mg tablet 10 mg PO DAILY Qty: 10 0RF Primary Care Provider: Ally Bearden Referrals: Ally Bearden, [employer] [Primary Care Provider] - Activity Restrictions/Additional Instructions: Please follow-up closely with a dentist. Please have a low threshold to return to the emergency room should she develop further fever, have worsening pain, generalized malaise, nausea or vomiting. Please push fluids. Avoid any smoking. Print Language: Nepalese Disposition Disposition: Home, Self Care
[2024-05-07] MEDS: Ampicillin/Sulbactam 3 GM in 0.9% Normal Saline (100mL MB+) 100 ML IV (12:24)
[2024-05-07 12:57] LABS: Lactic Acid 2.1 mmol/L (0.4-1.9)
[2024-05-07 13:00] VITALS: BP 150/102; PULSE 99; RESP 18; TEMP 37.4; O2SAT 99
[2024-05-07 13:38] VITALS: BP 147/105; PULSE 102; RESP 22; TEMP 36.8; O2SAT 96
[2024-05-07 15:55] LABS: Reflex Lactate? Y
[2024-05-09 08:56] LABS: Pathologist Review Reviewed
== END 2024-05-07 14:10 | disposition home or self-care (01) ==
PROVIDERS: Emergency Provider Emergency Medicine; PCP Nurse Practitioner Family; Visit Provider Emergency Medicine
DX: K04.7 Periapical abscess without sinus (principal); L03.211 Cellulitis of face; K02.9 Dental caries, unspecified; I10 Essential (primary) hypertension; F17.290 Nicotine dependence, other tobacco product, uncomplicated; Z79.899 Other long term (current) drug therapy
CPT/HCPCS: 36415; 70487; 80048; 83605; 85025; 86140; 87040; 93005; 96361; 96365; 96375; 99283; J7030; Q9967; A4216; J0295